=== PATIENT | female | born 1965 | race Caucasian/White ===

== ENCOUNTER 2017-04-19 10:04 | Emergency (ER) | payer SELFPAY ==
[~2017-04-19] VITALS: Ht 152.4 cm; Wt 82.0 kg
[~2017-04-19 10:04] MED LIST: ADAL1INJ SQ; CORE25TA PO; DICL1GEL TOP; HYDR-2768 PO; HYDR-3533 PO; LEVO.025 PO; LISI-593 PO; NIFE60TA5 PO; OMEP40CA2 PO; SPIR25 PO; VALI10TA PO; ZOLP10TA3 PO
[2017-04-19 10:11] VITALS: BP 218/95; PULSE 82; RESP 20; TEMP 98.6; O2SAT 97
[2017-04-19 10:15] VITALS: BP 193/86; PULSE 85; RESP 18; O2SAT 96
[2017-04-19] MEDS ORDERED: CEPH-460 PO (10:20)
--- NOTE | 2017-04-19 10:20 | PD ---
HPI Chief Complaint: Skin Problem Time Seen by Provider: 10:15 Travel History International Travel<30 days: No Contact w/Intl Traveler<30days: No Traveled to known affect area: No History of Present Illness HPI 51-year-old female here with complaint of finger pain. Patient has pain to the left index finger. States that she noticed redness around a hangnail. In triage, hypertensive. History of same and takes multiple medications for this which she had not yet taken this morning prior to arrival. She is asymptomatic without associated headache, chest pain, shortness of breath. States she has whitecoat hypertension and gets even more anxious when around providers. 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) Diminished Hearing: No GERD: Yes Hypertension: Yes Immunizations Current: No Thyroid Disease: Yes (HYPER) Para: 3 Past Surgical History Coronary Artery Bypass Graft: Yes (X 2 ) Gynecologic Surgery: Yes (HYSTERECTOMY ) Hysterectomy: Yes Other Surgery: Yes (HAND SURGERY ) Social History Alcohol Use: Yes (OCCASIONAL) Tobacco Use: No Substance Use: No Allergies-Medications (Allergen,Severity, Reaction): Coded Allergies: No Known Allergies (Verified , 10/23/15) Reported Meds & Prescriptions Reported Meds & Active Scripts Active Keflex (Cephalexin) 500 Mg Capsule 500 Mg PO TID 7 Days Reported Levothyroxine Sodium 25 Mcg Tab 25 Mcg PO DAILY Nifedical Xl (Nifedipine) 60 Mg Tab 60 Mg PO BID Zestril 40 mg (Lisinopril) 40 Mg Tab 40 Mg PO DAILY Hctz (Hydrochlorothiazide) 25 Mg Tab 25 Mg PO DAILY Voltaren 1% Gel (Diclofenac Sodium (Topical)) 1 % Gel 1 Applic TOP HS Coreg 25 mg (Carvedilol) 25 Mg Tab 25 Mg PO BID Aldactone 25 mg (Spironolactone) 25 Mg Tab 25 Mg PO DAILY Lortab 5 mg/325 mg (Hydrocodone/Acetaminophen 5 mg/325 mg) 1 Tab 0.5 Tab PO QID PRN Humira (Adalimumab) 10 Mg/0.2 Ml Inj 40 Mg SQ EVERY TWO WEEKS Ambien 10 Mg Tab (Zolpidem Tartrate) 10 Mg Tab 10 Mg PO HS PRN Omeprazole 40 mg (Omeprazole) 40 Mg Cap 40 Mg PO DAILY Valium (Diazepam) 10 Mg Tab 10 Mg PO TID PRN Review of Systems Except as stated in HPI: all other systems reviewed are Neg Physical Exam Narrative GENERAL: Well-appearing female in no acute distress SKIN: Focused skin assessment warm/dry. HEAD: Normocephalic. EYES: No scleral icterus. No injection or drainage. ENT: Mucous membranes pink and moist. NECK: Supple CARDIOVASCULAR: Regular rate and rhythm. No murmur appreciated. Hypertensive RESPIRATORY: No accessory muscle use. Clear to auscultation. Breath sounds equal bilaterally. MUSCULOSKELETAL: Left index finger with obvious paronychia with erythema surrounding a hangnail. No evidence of associated fluctuant, felon NEUROLOGICAL: Awake and alert. Normal speech. PSYCHIATRIC: Appropriate mood and affect; insight and judgment normal. Data Data Last Documented VS Vital Signs Date Time Temp Pulse Resp B/P Pulse Ox O2 Delivery O2 Flow Rate FiO2 04/19/17 10:11 98.6 82 20 218/95 97 Room Air MDM Medical Decision Making Medical Screen Exam Complete: Yes Emergency Medical Condition: Yes Medical Record Reviewed: Yes Differential Diagnosis 51-year-old female here with complaint of pain to the left index finger. Exam is consistent with paronychia. No evidence of associated felon. Patient incidentally hypertensive, notes a history of hypertension, white coat hypertension/anxiety. Quite hypertensive in triage but improved upon recheck and to the 190s systolic. Narrative Course We'll treat with Keflex for home for paronychia, warm soaks. Encouraged to take antihypertensives and follow up with primary if blood pressure remains elevated at home. Diagnosis Primary Impression: Paronychia Qualified Code: L03.012 - Paronychia, left Additional Impression: HTN (hypertension) Qualified Code: I10 - Essential hypertension Referrals: Primary Care Physician as needed Additional Instructions: Antibiotics as prescribed. Warm soaks to the finger. Monitor blood pressure at home and follow-up with primary care provider is persistently elevated. Med/Other Pt SpecificInfo: Prescription(s) given Scripts Cephalexin (Keflex)500 Mg [id number] Mg PO TID 7 Days Ref 0 Prov:Juliette Bland MD 04/19/17 Disposition: 01 DISCHARGE HOME Condition: Stable Juliette Bland MD Apr 19, 2017 10:20
[2017-04-19] MEDS ORDERED: RANI150T PO (10:33)
[2017-04-19] MEDS ORDERED: PERC10TA27 PO (10:33)
[2017-04-19] MEDS ORDERED: LEFL1TAB3 PO (10:33)
[2017-04-19] MEDS ORDERED: CARV3.12 PO (10:33)
[2017-04-19] MEDS ORDERED: DIAZ10TA PO (10:33)
[2017-04-19] MEDS ORDERED: OMEP40CA2 PO (10:33)
[2017-04-19] MEDS ORDERED: LEVO25TA4 PO (10:33)
[2017-04-19] MEDS ORDERED: NIFE20 PO (10:33)
[2017-04-19] MEDS ORDERED: LISI40TA PO (10:33)
[2017-04-19] MEDS ORDERED: HYDR25TA5 PO (10:33)
[2017-04-19] MEDS ORDERED: HYDR-3535 PO (10:35)
== END 2017-04-19 10:47 | disposition home or self-care (01) ==
LOC: NEPD 10:04
DX: L03.012 Cellulitis of left finger (principal); I10 Essential (primary) hypertension
CPT/HCPCS: 99283

== ENCOUNTER → 2018-01-05 | Outpatient (CLI) | payer OTHER ==
[~2018-01-05] MED LIST changes: -ADAL1INJ SQ; +CARV3.12 PO; -CORE25TA PO; +DIAZ10TA PO; -DICL1GEL TOP; -HYDR-2768 PO; -HYDR-3533 PO; +HYDR-3535 PO; +HYDR25TA5 PO; +LEFL1TAB3 PO; -LEVO.025 PO; +LEVO25TA4 PO; -LISI-593 PO; +LISI40TA PO; +NIFE20 PO; -NIFE60TA5 PO; +RANI150T PO; -SPIR25 PO; -VALI10TA PO; -ZOLP10TA3 PO
--- NOTE | 2018-01-05 13:56 | RADRPT ---
EXAM DATE/TIME: 01/05/2018 13:16 [facility] COMPARISON: No previous studies available for comparison. INDICATIONS : Patient states lower back pain. MEDICAL HISTORY : Arthritis. SURGICAL HISTORY : CABG. ENCOUNTER: Initial ACUITY: 1 month PAIN SCORE: 8/10 LOCATION: Bilateral SI Joints FINDINGS: Unilateral degenerative changes right SI joint. Unilateral changes are generally seen with gout and psoriatic arthritis if patient has abnormal gait. CONCLUSION: Right SI joint degenerative changes.. Rick Jimenez MD FACR on January 05, 2018 at 13:52 Board Certified Radiologist. This report was verified electronically.
--- NOTE | 2018-01-05 13:58 | RADRPT ---
EXAM DATE/TIME: 01/05/2018 13:20 [facility] COMPARISON: No previous studies available for comparison. INDICATIONS : Patient states lower back pain. MEDICAL HISTORY : Arthritis. SURGICAL HISTORY : CABG. ENCOUNTER: Initial ACUITY: 1 month PAIN SCORE: 8/10 LOCATION: Bilateral Lumbar FINDINGS: There are degenerative changes L5-S1 mild facet arthritis. There is good preservation vertebral body heights. Fractures are appreciated. CONCLUSION: Degenerative changes L5-S1. Degenerative changes right SI joint. Rick Jimenez MD FACR on January 05, 2018 at 13:56 Board Certified Radiologist. This report was verified electronically.
--- NOTE | 2018-01-05 13:59 | RADRPT ---
EXAM DATE/TIME: 01/05/2018 13:25 [facility] COMPARISON: No previous studies available for comparison. INDICATIONS : Patient states neck pain. MEDICAL HISTORY : Arthritis. SURGICAL HISTORY : CABG. ENCOUNTER: Initial ACUITY: 1 month PAIN SCORE: 8/10 LOCATION: Bilateral Cervical FINDINGS: Five view examination was performed. There is normal alignment and curvature of the vertebral bodies down to the level of C7. Mild degenerative changes are evident with minimal anterior osteophytes. Minimal neural foramina encroachment is seen at C4-C5. No evidence of fracture or subluxation. Verte bral body height is normal. The disc spaces are maintained. The prevertebral soft tissues are of no rmal thickness. The atlanto-axial articulation is intact. CONCLUSION: Mild degenerative changes Rick Jimenez MD FACR on January 05, 2018 at 13:57 Board Certified Radiologist. This report was verified electronically.
== END ==
LOC: HRAD 12:53
DX: M54.2 Cervicalgia (principal); M54.5 Low back pain
CPT/HCPCS: 72050; 72110; 72202